=== PATIENT | male | born 1940 | race Caucasian/White ===

== ENCOUNTER 2021-02-20 12:44 | Day surgery (SDC) | payer MEDICARE ==
[2021-02-18 14:22] LABS: BASOPHILS % (AUTO) 1.1 % (0.0-5.0); EOSINOPHILS % (AUTO) 2.6 % (0.0-8.0); HEMATOCRIT 44.5 % (42-54); LYMPHOCYTES % (AUTO) 27.5 % (21.0-51.0); MEAN CORPUSCULAR HEMOGLOBIN 31.5 pg (27.0-33.0); MEAN CORPUSCULAR HGB CONC 32.8 g/dL (32.0-36.0); MEAN CORPUSCULAR VOLUME 95.9 fL (79-99); MONOCYTES % (AUTO) 9.9 % (3.0-13.0); NEUTROPHILS % (AUTO) 58.5 % (40.0-77.0); PLATELET COUNT (AUTO) 270 K/uL (130-400); RED BLOOD CELL COUNT(AUTO) 4.64 MIL/uL (4.50-6.20); RED CELL DISTRIBUTION WIDTH 12.9 % (11.0-15.5); WHITE BLOOD COUNT (AUTO) 5.7 K/uL (4.8-10.8)
[2021-02-18 14:32] LABS: CREATININE 1.1 mg/dL (0.5-1.5); POTASSIUM 4.9 mmol/L (3.5-5.1)
[2021-02-18 14:35] LABS: INR 1.09 (0.85-1.15); PROTHROMBIN TIME 11.8 SEC (9.6-11.6)
[2021-02-18 14:37] LABS: PARTIAL THROMBOPLASTIN TIME 31.3 SEC (26.3-35.5)
[~2021-02-20] VITALS: Ht 188 cm; Wt 89.6 kg
[~2021-02-20 12:44] MED LIST: 0.9%NACL 1000ML 1,000 ML IV SCH; AEC81 PO; APIX5TAB PO; ASCO100031 PO; ATOR40TA71 PO; CHOL500045 PO; ESCI10TA PO; FISH1CAP63 PO; LEVO75CA5 PO; MAGN250T10 PO; MIDO5TAB4 PO; MIRT-22 PO; UBID100C45 PO; VITA1TAB39 PO
[2021-02-20 12:59] VITALS: BP 91/58
[2021-02-20] MEDS ORDERED: MEPERIDINE-PF 25 MG/ML SYG ONE ×4 (16:47→18:02)
[2021-02-20] MEDS ORDERED: MIDAZOLAM HCL 1 MG/ML 2ML VIAL ONE ×3 (16:47→18:01)
[2021-02-20] MEDS ORDERED: LIDOCAINE HCL 400MG/20ML VIAL ONE (16:47)
[2021-02-20] MEDS ORDERED: HEPARIN 10,000 UNIT/10ML (1,000 UNIT/ML) VIAL ONE (16:47)
[2021-02-20 19:30] VITALS: BP 131/89
[2021-02-20 19:45] VITALS: BP 144/74
[2021-02-20 20:00] VITALS: BP 139/77
[2021-02-20 20:15] VITALS: BP 134/71
[2021-02-20] MEDS ORDERED: APIXABAN 5 MG TABLET PO ONE (22:00)
== END 2021-02-20 22:50 | disposition home or self-care (01) ==
LOC: DAH 12:44
PROVIDERS: ATTEND Internal Medicine Cardiovascular Disease
DX: I48.3 Typical atrial flutter (principal); I95.1 Orthostatic hypotension; I25.10 Atherosclerotic heart disease of native coronary artery without angina pectoris; Z86.73 Personal history of transient ischemic attack (TIA), and cerebral infarction without residual deficits; Z79.01 Long term (current) use of anticoagulants; Z79.82 Long term (current) use of aspirin; Z79.899 Other long term (current) drug therapy
CPT/HCPCS: 36415; 80048; 85025; 85610; 85730; 93005 ×2; 93613; 93621; 93653; 93655; A4215; A4221; A4222; A4223 ×2; A4606; A4649 ×2; A4663; C1730; C1732; C1894 ×2; J1644 ×2; J2175 ×4; J2250 ×3; J3490; J7030; 99156; 99157

== ENCOUNTER 2021-11-07 09:41 | Day surgery (SDC) | payer MEDICARE ==
[2021-11-05 12:34] LABS: BASOPHILS % (AUTO) 1.1 % (0.0-5.0); EOSINOPHILS % (AUTO) 4.4 % (0.0-8.0); HEMATOCRIT 44.1 % (42-54); LYMPHOCYTES % (AUTO) 28.2 % (21.0-51.0); MEAN CORPUSCULAR HEMOGLOBIN 31.3 pg (27.0-33.0); MEAN CORPUSCULAR HGB CONC 33.8 g/dL (32.0-36.0); MEAN CORPUSCULAR VOLUME 92.6 fL (79-99); MONOCYTES % (AUTO) 7.5 % (3.0-13.0); NEUTROPHILS % (AUTO) 58.5 % (40.0-77.0); PLATELET COUNT (AUTO) 195 K/uL (130-400); RED BLOOD CELL COUNT(AUTO) 4.76 MIL/uL (4.50-6.20); RED CELL DISTRIBUTION WIDTH 12.5 % (11.0-15.5); WHITE BLOOD COUNT (AUTO) 6.6 K/uL (4.8-10.8)
[2021-11-05 12:41] LABS: POTASSIUM 5.3 mmol/L (3.5-5.1)
[2021-11-05 12:43] LABS: INR 1.01 (0.85-1.15)
[2021-11-05 12:45] LABS: PARTIAL THROMBOPLASTIN TIME 28.8 SEC (26.3-35.5)
[2021-11-05 12:57] LABS: APPEARANCE,URINE CLEAR (CLEAR); BILIRUBIN,URINE NEGATIVE (NEGATIVE); COLOR,URINE YELLOW (YELLOW); GLUCOSE, URINE (UA) NEGATIVE (NEGATIVE); KETONES,URINE NEGATIVE (NEGATIVE); LEUKOCYTE ESTERASE ,URINE NEGATIVE (NEGATIVE); NITRATE,URINE NEGATIVE (NEGATIVE); OCCULT BLOOD,URINE NEGATIVE (NEGATIVE); PROTEIN,URINE NEGATIVE (NEGATIVE)
[2021-11-05 13:32] LABS: B-TYPE NATRIURETIC PEPTIDE 85 pg/mL (0-100)
[2021-11-06 10:50] VITALS: BP 122/70
[~2021-11-07] VITALS: Ht 185.4 cm; Wt 90.4 kg
[~2021-11-07 09:41] MED LIST changes: +0.9% NACL 500ML IV.SOLN 500 ML IV SCH; -0.9%NACL 1000ML 1,000 ML IV SCH; -ASCO100031 PO; -ATOR40TA71 PO; -CHOL500045 PO; +CLOP75TA32 PO; -MIDO5TAB4 PO; +TUMERIC PO; -UBID100C45 PO; +UBID200C18 PO; +VITAMIN D3 PO
[2021-11-07 11:00] VITALS: BP 100/63
[2021-11-07] MEDS ORDERED: 0.9%NACL 1000ML 1,000 ML IV ONE (11:50)
[2021-11-07] MEDS ORDERED: SODIUM BICARB 50MEQ 50ML VIAL 50 ML ONE (14:50)
[2021-11-07] MEDS ORDERED: IOHEXOL 350 MG/ML 100ML INFUS..BTL IV ONE ×2 (14:50→15:04)
[2021-11-07] MEDS ORDERED: LIDOCAINE HCL 1% 10 ML VIAL ONE (14:50)
[2021-11-07] MEDS ORDERED: MIDAZOLAM HCL 1 MG/ML 2ML VIAL ONE (14:55)
[2021-11-07] MEDS ORDERED: FENTANYL CITRATE PF 50 MCG/1 ML 2ML VIAL ONE (14:57)
[2021-11-07] MEDS ORDERED: NITROGLYCERIN 50MG VIAL ONE (15:00)
[2021-11-07] MEDS ORDERED: IOHEXOL-350 50ML VIAL IV ONE (15:04)
[2021-11-07 15:55] VITALS: BP 144/84
[2021-11-07] MEDS ORDERED: 0.9% NACL 500ML IV.SOLN 500 ML IV SCH (16:00)
[2021-11-07 16:10] VITALS: BP 142/88
[2021-11-07 16:25] VITALS: BP 140/82
[2021-11-07 16:40] VITALS: BP 144/80
[2021-11-07 17:45] VITALS: BP 150/84
== END 2021-11-07 17:45 | disposition home or self-care (01) ==
LOC: DAH 09:41
PROVIDERS: ATTEND Internal Medicine Cardiovascular Disease
DX: I25.119 Atherosclerotic heart disease of native coronary artery with unspecified angina pectoris (principal); I48.0 Paroxysmal atrial fibrillation; Z79.01 Long term (current) use of anticoagulants; Z98.890 Other specified postprocedural states; Z79.890 Hormone replacement therapy; Z79.899 Other long term (current) drug therapy
CPT/HCPCS: 36415; 71045; 80048; 81003; 83880; 85025; 85610; 85730; 93005; 93454; A4215; A4216; A4221; A4222; A4223 ×3; A4606; A4663; C1760; C1894 ×2; J1644; J2250; J3010; J3490 ×3; J7030; Q9965; Q9967; 99156; 99157

== ENCOUNTER → 2022-01-23 | Outpatient (CLI) | payer MEDICARE ==
[~2022-01-23] MED LIST changes: -0.9% NACL 500ML IV.SOLN 500 ML IV SCH; +ATOR40TA71 PO; -CLOP75TA32 PO; +DRON400T7 PO; +FLUD0.1T2 PO; +LACT1CAP78 PO; +MIDO5TAB4 PO; -MIRT-22 PO
[2022-01-23 12:57] LABS: ALBUMIN 3.2 g/dL (3.5-5.0); CREATININE 1.2 mg/dL (0.5-1.5); MAGNESIUM 2.2 mg/dL (1.80-2.40); POTASSIUM 4.5 mmol/L (3.5-5.1); THYROID STIMULATING HORMONE 1.57 uIU/mL (0.36-3.74); TOTAL PROTEIN, SERUM 7.3 g/dL (6.0-8.3)
[2022-01-23 13:00] LABS: B-TYPE NATRIURETIC PEPTIDE 533 pg/mL (0-100)
[2022-01-23 13:23] LABS: BASOPHILS % (AUTO) 0.9 % (0.0-5.0); EOSINOPHILS % (AUTO) 4.6 % (0.0-8.0); LYMPHOCYTES % (AUTO) 22.3 % (21.0-51.0); MEAN CORPUSCULAR HEMOGLOBIN 31.9 pg (27.0-33.0); MEAN CORPUSCULAR HGB CONC 33.2 g/dL (32.0-36.0); MEAN CORPUSCULAR VOLUME 96.2 fL (79-99); MONOCYTES % (AUTO) 11.1 % (3.0-13.0); NEUTROPHILS % (AUTO) 60.7 % (40.0-77.0); PLATELET COUNT (AUTO) 224 K/uL (130-400); RED BLOOD CELL COUNT(AUTO) 3.95 MIL/uL (4.50-6.20); RED CELL DISTRIBUTION WIDTH 14.2 % (11.0-15.5); WHITE BLOOD COUNT (AUTO) 6.9 K/uL (4.8-10.8)
== END | disposition home or self-care (01) ==
LOC: LAB 10:38
PROVIDERS: ATTEND Physician Assistant
DX: I48.0 Paroxysmal atrial fibrillation (principal); I95.1 Orthostatic hypotension
CPT/HCPCS: 36415; 80053; 83735; 83880; 84443; 85025

== ENCOUNTER 2022-05-23 17:22 | Emergency (ER) | payer MEDICARE ==
[~2022-05-23] VITALS: Ht 185.4 cm; Wt 86.2 kg
[~2022-05-23 17:22] MED LIST changes: +ASCO100033 PO; +ATOR40TA69 PO; -ATOR40TA71 PO; -DRON400T7 PO; -FISH1CAP63 PO; -FLUD0.1T2 PO; -LEVO75CA5 PO; +LEVO75TA10 PO; -MIDO5TAB4 PO; +OMEG-114 PO; +TRAM50TA4 PO
[2022-05-23 17:51] LABS: HEMATOCRIT 40.3 % (42-54); MEAN CORPUSCULAR HEMOGLOBIN 31.9 pg (27.0-33.0); MEAN CORPUSCULAR HGB CONC 34.2 g/dL (32.0-36.0); MEAN CORPUSCULAR VOLUME 93.1 fL (79-99); RED BLOOD CELL COUNT(AUTO) 4.33 MIL/uL (4.50-6.20); RED CELL DISTRIBUTION WIDTH 13.6 % (11.0-15.5); WHITE BLOOD COUNT (AUTO) 10.1 K/uL (4.8-10.8)
[2022-05-23 17:55] LABS: CREATININE 1.1 mg/dL (0.5-1.5)
[2022-05-23 17:58] LABS: INR 1.01 (0.85-1.15)
[2022-05-23 18:05] LABS: ALBUMIN 3.4 g/dL (3.5-5.0); TOTAL PROTEIN, SERUM 7.4 g/dL (6.0-8.3)
[2022-05-23 23:24] VITALS: BP 112/60
== END 2022-05-23 23:46 | disposition home or self-care (01) ==
LOC: EDH 17:22
DX: I95.1 Orthostatic hypotension (principal); S00.83XA Contusion of other part of head, initial encounter; E78.00 Pure hypercholesterolemia, unspecified; I48.91 Unspecified atrial fibrillation; E03.9 Hypothyroidism, unspecified; Z79.899 Other long term (current) drug therapy; W18.30XA Fall on same level, unspecified, initial encounter; Y93.89 Activity, other specified; Y92.89 Other specified places as the place of occurrence of the external cause; Y99.8 Other external cause status
CPT/HCPCS: 36415; 70450; 72125; 80053; 84484; 85027; 85610; 93005

== ENCOUNTER 2023-11-25 05:50 | Day surgery (SDC) | payer MEDICARE ==
[2023-11-23 12:39] LABS: BASOPHILS # (AUTO) 0.05 K/uL (0.00-0.20); BASOPHILS % (AUTO) 0.8 % (0.0-5.0); EOSINOPHILS # (AUTO) 0.15 K/uL (0.00-0.70); EOSINOPHILS % (AUTO) 2.4 % (0.0-8.0); HEMATOCRIT 38.7 % (42-54); IMMATURE GRANULOCYTE ABSOLUTE 0.01 K/uL (0-1); LYMPHOCYTES # (AUTO) 1.2 K/uL (1.0-4.8); MEAN CORPUSCULAR HGB CONC 33.9 g/dL (32.0-36.0); MEAN CORPUSCULAR VOLUME 91.7 fL (79-99); MONOCYTES # (AUTO) 0.6 K/uL (0.1-1.0); MONOCYTES % (AUTO) 9.7 % (3.0-13.0); NEUTROPHILS # (AUTO) 4.2 K/uL (1.8-7.7); NEUTROPHILS % (AUTO) 66.9 % (40.0-77.0); PLATELET COUNT (AUTO) 196 K/uL (130-400); RED BLOOD CELL COUNT(AUTO) 4.22 MIL/uL (4.50-6.20); RED CELL DISTRIBUTION WIDTH 13.4 % (11.0-15.5); WHITE BLOOD COUNT (AUTO) 6.2 K/uL (4.8-10.8)
[2023-11-23 12:54] LABS: CREATININE 0.8 mg/dL (0.5-1.3); POTASSIUM 3.5 mmol/L (3.5-5.1)
[2023-11-23 13:21] VITALS: BP 176/88; PULSE 95; RESP 19
[~2023-11-25] VITALS: Ht 185.4 cm; Wt 86.5 kg
[~2023-11-25 05:50] MED LIST changes: +ATOR10 PO; -ATOR40TA69 PO; +CALC-866 PO; +CYAN50009 PO; +DRON400T7 PO; +FLUD0.1T2 PO; -LACT1CAP78 PO; +LINA290C PO; +MIDO5TAB4 PO; -TRAM50TA4 PO; -UBID200C18 PO; +VITA-395 PO; -VITA1TAB39 PO; -VITAMIN D3 PO; +ZINC100T2 PO
[2023-11-25 06:20] VITALS: BP 185/118; PULSE 68; RESP 17
[2023-11-25] MEDS ORDERED: PROPOFOL 10 MG/ML 20ML VIAL IV ONE ×2 (07:21→07:22)
[2023-11-25 08:10] VITALS: BP 150/75; PULSE 76; RESP 16
== END 2023-11-25 09:05 | disposition home or self-care (01) ==
LOC: DAH 05:50
PROVIDERS: ATTEND Internal Medicine Cardiovascular Disease
DX: I48.19 Other persistent atrial fibrillation (principal); I25.10 Atherosclerotic heart disease of native coronary artery without angina pectoris; I49.5 Sick sinus syndrome; I95.1 Orthostatic hypotension; I10 Essential (primary) hypertension; Z86.73 Personal history of transient ischemic attack (TIA), and cerebral infarction without residual deficits; Z90.49 Acquired absence of other specified parts of digestive tract; Z95.0 Presence of cardiac pacemaker; Z95.5 Presence of coronary angioplasty implant and graft; Z98.42 Cataract extraction status, left eye; Z98.41 Cataract extraction status, right eye; Z79.01 Long term (current) use of anticoagulants; Z79.82 Long term (current) use of aspirin; Z79.899 Other long term (current) drug therapy
CPT/HCPCS: 80048; 85025; 36415; 92960; 93005 ×2; J2704; A4620; A4215; A4222; A4221; A4663; A4216; A4606; A4223 ×3; J3490

== ENCOUNTER → 2024-03-21 | Outpatient (CLI) | payer MEDICARE ==
--- NOTE | 2024-03-21 15:55 | HMCIMG ---
Exam: NONCONTRAST CT BRAIN REASON: FALL 03/17/2024. COMPARISON: 12/28/2023 TECHNIQUE: Images are obtained from vertex to the skull base. The exam was performed without IV contrast. FINDINGS: There are generous ventricles and sulci. There is decreased attenuation in the deep central white matter. These findings are consistent with atrophy. There are no acute appearing focal parenchymal lesions. There is no evidence of mass, intracranial hemorrhage or acute stroke. Posterior fossa and brainstem structures appear unremarkable. There are no abnormal fluid collections. There is a right frontal scalp contusion without evidence of underlying fracture. Extra cranial soft tissues appear otherwise unremarkable. IMPRESSION: 1. Atrophy, no acute finding. CT was performed with one or more following dose reduction techniques: automated exposure control, adjustment of the mA and kv according to patient's size, or use of a iterative reconstruction technique.
== END | disposition home or self-care (01) ==
LOC: RAH 12:46
PROVIDERS: ATTEND Family Medicine
DX: G31.89 Other specified degenerative diseases of nervous system (principal); G44.52 New daily persistent headache (NDPH)
CPT/HCPCS: 70450